=== PATIENT | male | born 1990 | race Caucasian/White ===

== ENCOUNTER 2021-06-27 15:27 | Observation (INO) | payer OTHER, SELFPAY ==
[2021-06-27] VITALS (9 sets, daily range): BP systolic 84–128; BP diastolic 38–71; PULSE 74–103; RESP 16–18; TEMP 36.8–38.7; O2SAT 95–100; BMI 23.2
[2021-06-27 16:01] LABS: Bilirubin Negative (Negative); Blood Negative (Negative); Clarity Clear (Clear); Glucose Negative (Negative); Ketones Negative (Negative); Leukocyte Esterase Negative (Negative); Nitrite Negative (Negative); Specific Gravity >= 1.030 (1.005-1.025); Urobilinogen 0.2 EU/dL (Up TO 0.2)
[2021-06-27] MEDS: Normal Saline 1,000 ML 1000 ML IV (16:07)
[2021-06-27 16:31] LABS: Abs Immature Grans 0.12 10^3/uL (0.0-0.06); Absolute Monocyte Count 1.24 10^3/uL (0.1-0.8); Basophils % 0.2; HGB 14.6 g/dL (13.5-17.5); Immature Grans % 0.6; Lymphocytes % 2.1; MCH 29.3 pg (27.0-33.0); MCHC 35.6 % (32.0-36.0); MCV 82.2 fL (80-95); MPV 9.5 fL (8.0-11.0); Monocytes % 5.9; Neutrophils % 91.2; Nucleated RBC 0 %; Platelet Count 213 10^3/uL (130-400); RBC 4.99 10^6/uL (4.36-5.78); RDW 12.3 % (11.8-14.1); RDW-SD 36.2 fL; WBC 21.03 10^3/uL (4.4-10.8)
[2021-06-27 16:32] LABS: Absolute Basophil Count 0.04 10^3/uL (0.0-0.2); Absolute Lymphocyte Count 0.44 10^3/uL (1.2-3.4); Absolute Neutrophil Count 19.18 10^3/uL (1.2-6.7)
[2021-06-27 16:37] LABS: ALT 26 U/L (16-63); AST 16 U/L (15-37); Albumin 4.3 g/dL (3.4-5.0); Alkaline Phosphatase 90 U/L (46-116); Anion Gap 10.4 mmol/L (3-11); BUN 12 mg/dL (7-18); Bilirubin, Total 1.3 mg/dL (0.2-1.0); CO2 26.6 mmol/L (21.0-32.0); CREATININE 1.1 mg/dL (0.70-1.30); Calcium 8.9 mg/dL (8.5-10.1); Chloride 99 mmol/L (98-107); Glucose 131 mg/dL (74-106); Potassium 3.3 mmol/L (3.5-5.1); Sodium 136 mmol/L (136-145); Total Protein 7.8 g/dL (6.4-8.2)
--- NOTE | 2021-06-27 16:45 | DI.CT_ITS ---
Exam(s) CT ABDOMEN PELVIS W EXAM: CT ABDOMEN PELVIS W CLINICAL HISTORY: Abdominal pain, Right groin pain. TECHNIQUE: Imaging Protocol: Axial computed tomography images with coronal and sagittal reformatted images were created and reviewed CONTRAST MATERIAL: Intravenous: Omnipaque 350 Contrast volume:100 ml Oral: no COMPARISON: No exams were available for comparison FINDINGS: ABDOMEN: Lung Bases: Normal where visualized. Liver: Normal density. No measurable mass. Gallbladder and biliary tract: No radiodense calculus or dilation. Pancreas: Normal density, no abnormal calcifications or inflammatory process. Spleen: Normal. Kidneys: Normal size, contour and axis. No radiodense stones or obstructive uropathy. No masses seen. Adrenal glands: No masses seen. Abdominal Aorta: Abdominal portion non-dilated. PELVIS: Bladder: No gross wall thickening. No calculi.No focal mass. Bowel: No obstruction or bowel wall thickening. Appendix is dilated and fluid-filled and shows mild s urrounding stranding in the fat. Appendicolith is seen proximally.. Peritoneal cavity: Trace free fluid. Bones: Within normal limits for age. Reproductive organs: Within normal limits. Lymph nodes: Unremarkable. Impression: Acute uncomplicated appendicitis. RADIATION DOSE DELIVERED: 627.82mGy.cm Total DLP DATA REPOSITORY: All CT scans at this facility are submitted to the National Radiology Data Registry (NRDR) Dose Index Registry (DIR) with the [employer] (A[employer]). RADIATION OPTIMIZATION: All CT scans at this facility use at least one of these dose optimization te chniques: automated exposure control; mA and/or kV adjustment per patient size (includes targeted exa ms where dose is matched to clinical indication); or iterative reconstruction.
--- NOTE | 2021-06-27 16:49 | ED.GENADUL_ITS ---
Discharge Plan Disposition Patient Disposition: [facility] INPATIENT Condition: Stable Discharge Details Clinical Impression: Acute appendicitis Admit Date/Time: 06/27/21 20:22 Admit Provider: Rhonda Palacios Attending Provider: Rhonda Palacios Primary Care Provider: Unknown,Unknown ED Provider: Cristina Haynes Medical Decision Making CBC shows elevated white blood cell count 21.03, positive left shift absolute neutrophils 19.18, potassium slightly low at 3.3, glucose 131, total bilirubin 1.3 significantly vomited urinalysis shows no evidence of urinary tract infection. CT abdomen pelvis with contrast ordered to rule out appendicitis versus cholecy stitis. Lipase added on the labs. Patient is receiving 1 L normal saline wide open, 1 g Tylenol ordered IV and Covid swab. 1742: Call received from [facility] regarding CT. Positive appendicitis CT abdomen pelvis. Appendix is thickened and dilated. Fluid-filled measuring 13 mm in diameter there appears to be a proximal obstructing appendicolith series #7 images 601 12 there is mild adjacent inflammatory changes. Small bilateral hydroceles. Exam: CT Abdomen And Pelvis With Contrast Exam date and time: 06/27/2021 4:49 PM Age: 31 years old COMPARISON: No relevant prior studies available. FINDINGS: Liver: Normal. No mass. Gallbladder and bile ducts: Normal. No calcified stones. No ductal dilation. Pancreas: Normal. No ductal dilation. Spleen: Normal. No splenomegaly. Adrenal glands: Normal. No mass. Kidneys and ureters: Normal. No hydronephrosis. Stomach and bowel: Moderate fecal retention pattern. No abnormal bowel distention or wall edema is appreciated. New lines the appendix is abnormally thickened and dilated. It is fluid-filled measuring nearly 13 mm in diameter. There appears to be a proximal obstructing appendicoliths series 7, images 601-612. There is mild adjacent inflammatory change. Appendix: See Stomach and bowel finding.Please thank youl aortic aneurysm. Lymph nodes: Unremarkable. No enlarged lymph nodes. Urinary bladder: Unremarkable as visualized. Reproductive: Small bilateral hydroceles. Bones/joints: Unremarkable. No acute fracture. Soft tissues: Unremarkable. IMPRESSION: Acute appendicitis. No evidence for rupture. Suspect proximal obstructing appendicoliths. Thank you for allowing us to participate in the care of your patient. Dictated and Authenticated by: Ofelia Ervin MD 077: Call made to [facility] due to [facility] at bed capacity, surgeon paged. Discussed plan of care and CT results with patient who verbalizes understanding and is in agreement with plan. 180: RN informed me temp 101.6, Received 1gm Tylenol IVPB, Pain 4/10. 180: Spoke with Dr. Solorzano with Surgery at [facility], she recommends consult with our in house surgery team she states, sometimes the treatment is IV antibiotics, our surgeon paged. Will expect to call [facility] surgery back. 1814: Spoke with Dr. Palacios with [facility], regarding patient case and details, she will call me back. 1827: Spoke again with Dr. Palacios who agrees to admit patient, she was able to find a bed available at this facility, agrees to come in to evaluate patient. Dr. Palacios here at for patient evaluation, plan to take patient to OR for appendectomy. HPI General Mode of arrival: ambulatory . Date/Time Provider Initiated Documentation: 06/27/21 16:48 . Limitations to Documentation: no limitations . Information obtained by: patient, RN notes reviewed and old records reviewed . HPI Narrative: 31-year-old male presents the ER chief complaint of abdominal pain which began approximately 3:00 in the morning. He reports it began around periumbilical and now has radiated down into his right lower quadrant right groin. He did have one episode of emesis earlier denies diarrhea. Denies any fever. Does endorse chills. He has no known drug allergies no meds no history. He denies any dysuria. On initial exam he is tender in the right lower quadrant. Did not take any medications prior to arrival. Related Data Home Medications Medication Instructions Recorded Confirmed Unknown [No Known Home Meds] 06/27/21 06/27/21 Allergies Allergy/AdvReac Type Severity Reaction Status Date / Time No Known Allergies Allergy Unverified 06/27/21 15:42 General Stated Complaint: Abd Prob DARY: 3 Review of Systems All systems reviewed & are unremarkable except as noted in HPI and below Constitutional Constitutional: Reports poor appetite Gastrointestinal Gastrointestinal: Reports abdominal pain, Denies diarrhea, Reports nausea, Reports vomiting and Denies hematemesis [facility] Social History Smoking/Tobacco Use Status: Never Smoking risk assessment performed?: Yes Alcohol Intake: current Alcohol Intake frequency: 0-2 drinks per day Alcohol type: beer, wine and hard liquor Drug use: Occasionally Substance use type: marijuana Do you feel safe at home: Yes Do you feel safe in your relationship?: Yes Exam Narrative Exam Narrative: Constitutional: Alert and oriented x3. Appears stated age. Normal body habitus. Head: Normocephalic, no trauma. Eyes: Pupils PERRL, Red reflex noted, EOM's intact. Eyelids symmetrical without lesions, discharge, or swelling. ENT: Bilateral TM's WNL, External ear normal to inspection, no mastoid TTP, swelling, or erythema, Nasal turbinates WNL, no nasal discharge. Normal dentition, Posterior pharynx WNL, no exudate. Chest: RRR, Normal S1, S2, distal pulses intact. Resp: Lungs clear to auscultation bilaterally, no wheezes, rales, or rhonchi. Abdomen: Soft, non-distended, hypoactive bowel sounds all 4 quads. Right lower quadrant tenderness with palpation. : No testicular swelling, redness or tenderness with palpation. Cresematic reflex intact. Musculoskeletal: Normal gait, 5/5 strength to all four extremities. Skin: No suspicious rashes or lesions. Capillary refill less than 2 sec. Neurologic: Cranial nerves II-XII intact. Alert and oriented x 3. Motor: No deficits noted. Sensory: Intact bilaterally all 4 extremities. Reflexes: DTR's intact bilaterally.. Hematologic/Lymphatic: No ecchymosis, no lymphadenopathy. Course Vital Signs Vital signs: Vital Signs Temperature 37.3 C 06/27/21 15:43 Pulse 103 H 06/27/21 15:43 Respiratory Rate 18 06/27/21 15:43 Blood Pressure 128/71 06/27/21 15:43 Pulse Oximetry 100 06/27/21 15:43 Temperature 37.3 C 06/27/21 15:43 Temperature Source Temporal Artery Scan 06/27/21 15:43 Pulse 103 H 06/27/21 15:43 Respiratory Rate 18 06/27/21 15:43 Respiratory Effort Non-Labored 06/27/21 15:47 Blood Pressure 128/71 06/27/21 15:43 Blood Pressure Position Sitting 06/27/21 15:43 Pulse Oximetry 100 06/27/21 15:43 Oxygen Delivery Method Room Air 06/27/21 15:43 Oxygen Flow Rate 0 06/27/21 15:43 Pain Level 5 06/27/21 15:43 Lab/Test Results Lab/Test Results: Laboratory Tests Range/Units 06/27/21 06/27/21 06/27/21 15:52 16:07 16:07 WBC (4.4-10.8) 10^3/uL 21.03 H RBC (4.36-5.78) 10^6/uL 4.99 Hgb (13.5-17.5) g/dL 14.6 Hct (40.0-50.0) % 41.0 MCV (80-95) fL 82.2 MCH (27.0-33.0) pg 29.3 MCHC (32.0-36.0) % 35.6 RDW (11.8-14.1) % 12.3 Plt Count (130-400) 10^3/uL 213 MPV (8.0-11.0) fL 9.5 Immature Gran % 0.6 Neutrophils % 91.2 Lymphocytes % 2.1 Monocytes % 5.9 Eosinophils % 0.0 Basophils % 0.2 Nucleated RBC % % 0 Absolute Neutrophils (1.2-6.7) 10^3/uL 19.18 H Absolute Lymphocytes (1.2-3.4) 10^3/uL 0.44 L Absolute Monocytes (0.1-0.8) 10^3/uL 1.24 H Absolute Eosinophils (0.0-0.7) 10^3/uL 0.00 Absolute Basophils (0.0-0.2) 10^3/uL 0.04 Sodium (136-145) mmol/L 136 Potassium (3.5-5.1) mmol/L 3.3 L Chloride (98-107) mmol/L 99 Carbon Dioxide (21.0-32.0) mmol/L 26.6 Anion Gap (3-11) mmol/L 10.4 BUN (7-18) mg/dL 12 Creatinine (0.70-1.30) mg/dL 1.1 Estimated GFR/1.73 m2 (mL/min/1.73m2) >= 60.00 Glucose (74-106) mg/dL 131 H Calcium (8.5-10.1) mg/dL 8.9 Total Bilirubin (0.2-1.0) mg/dL 1.3 H AST (15-37) U/L 16 ALT (16-63) U/L 26 Alkaline Phosphatase (46-116) U/L 90 Total Protein (6.4-8.2) g/dL 7.8 Albumin (3.4-5.0) g/dL 4.3 Urine Color (Yellow) Yellow Urine Clarity (Clear) Clear Urine pH (5-8) 6.0 Ur Specific [place] (1.005-1.025) >= 1.030 H Urine Protein (Negative) mg/dL Negative Urine Ketones (Negative) mg/dL Negative Urine Blood (Negative) Negative Urine Nitrite (Negative) Negative Urine Bilirubin (Negative) Negative Urine Urobilinogen (Up TO 0.2) EU/dL 0.2 Ur Leukocyte Esterase (Negative) Negative Urine Glucose (Negative) mg/dL Negative PAWSS Have you Been Recently Intoxicated or Drunk Within the Last 30 days?: No Have you Ever Experienced Previous Episodes of Alcohol Withdrawal?: No Have you ever Experienced Withdrawal Seizures?: No Have you ever Experienced Delirium Tremens(DT)s?: No Have you ever undergone Alcohol Rehabilitation Treatment (i.e, inpt ot outpatient treatment programs)?: No Have you ever Experienced Blackouts?: No Have you ever Combined Alcohol with other Downers within the last 90 days?: No Have you ever Combined Alcohol with any other Substance of Abuse during the last 90 days?: No Positive Blood Alcohol level on Presentation? [PCS.BAL]: No Evidence of Increased Autonomic Activity (i.e. HR>120, tremor, sweating, agitation, nausea)?: No Result: 0
[2021-06-27 17:10] LABS: Source Nasal/Nares
[2021-06-27 17:13] LABS: Lipase 79 U/L (73-393)
[2021-06-27] MEDS: Normal Saline - Diluent 50 ML VIAL IV (17:19)
[2021-06-27] MEDS: Omnipaque 350 MG/ML 100 ML BTL IJ (17:22)
[2021-06-27] MEDS: ACETAMINOPHEN 1,000 MG/100 ML BTL 400 MG IVPB ×2 (17:32→23:15)
--- NOTE | 2021-06-27 17:43 | DI.VRAD_ITS ---
Addendum created by Ofelia Ervin MD on 06/27/2021 5:43:56 PM EDT: I discussed case findings with TIFFANIE BISHOP 06/27/2021 5:43 PM EDT. Initial report created on 06/27/2021 5:43:29 PM EDT: PROCEDURE INFORMATION: Exam: CT Abdomen And Pelvis With Contrast Exam date and time: 06/27/2021 4:49 PM Age: 31 years old Clinical indication: Other: Abdominal pain, right groin pain TECHNIQUE: Imaging protocol: Computed tomography of the abdomen and pelvis with contrast. Contrast material: OMNIPAQUE 350; Contrast volume: 100 ml; Contrast route: INTRAVENOUS (IV); COMPARISON: No relevant prior studies available. FINDINGS: Liver: Normal. No mass. Gallbladder and bile ducts: Normal. No calcified stones. No ductal dilation. Pancreas: Normal. No ductal dilation. Spleen: Normal. No splenomegaly. Adrenal glands: Normal. No mass. Kidneys and ureters: Normal. No hydronephrosis. Stomach and bowel: Moderate fecal retention pattern. No abnormal bowel distention or wall edema is appreciated. New lines the appendix is abnormally thickened and dilated. It is fluid-filled measuring nearly 13 mm in diameter. There appears to be a proximal obstructing appendicoliths series 7, images 601-612. There is mild adjacent inflammatory change. Appendix: See Stomach and bowel finding. Intraperitoneal space: Trace free fluid. Vasculature: Unremarkable. No abdominal aortic aneurysm. Lymph nodes: Unremarkable. No enlarged lymph nodes. Urinary bladder: Unremarkable as visualized. Reproductive: Small bilateral hydroceles. Bones/joints: Unremarkable. No acute fracture. Soft tissues: Unremarkable. IMPRESSION: Acute appendicitis. No evidence for rupture. Suspect proximal obstructing appendicoliths. Dictated and Authenticated by: Ofelia Ervin MD. Ordering:AB Evans MD
[2021-06-27] MEDS: Normal Saline 1,000 ML 150 ML IV (18:05)
[2021-06-27 18:06] LABS: COVID-19 PCR Negative (Negative)
[2021-06-27] MEDS: PIPERACILLIN/TAZO 3.375 GM in Normal Saline 50 ML IVPB (18:35)
--- NOTE | 2021-06-27 18:36 | W.ANESPRE ---
General Info Date of Service Date Performed: 06/27/21 Height: 5 ft 6 in Weight: 65.317 kg Body Mass Index (BMI): 23.2 Meds Allergies and Home Medications Allergies Allergy/AdvReac Type Severity Reaction Status Date / Time No Known Allergies Allergy Unverified 06/27/21 15:42 Home Medication Medication Instructions Recorded Unknown [No Known Home Meds] 06/27/21 Current Visit Medications: Current Medications Generic Name Dose Route Start Last Admin Trade Name Freq PRN Reason Stop Dose Admin Sodium Chloride 500 mls @ 0 mls/hr 06/27/21 16:01 Saline 500ml Bag IV PRN PRN As Directed Sodium Chloride 1,000 mls @ 150 mls/hr 06/27/21 18:01 06/27/21 18:05 Saline 1000ml Bag IV 06/28/21 00:40 150 mls/hr INFUSION STA Administration Piperacillin Sod/Tazobactam 50 mls @ 100 mls/hr 06/27/21 18:21 Sod 3.375 gm/ Sodium Chloride IVPB 06/27/21 18:50 NOW ONE Protocol IV Miscellaneous Supplies 1 each 06/27/21 16:15 Iv Access IV DIRECTED DANGELO Iohexol 100 ml 06/27/21 17:30 06/27/21 17:22 Omnipaque 350 Mg/Ml 100 Ml Btl IJ 07/27/21 23:59 100 ml DIRECTED DANGELO Administration Sodium Chloride 0 ml 06/27/21 16:01 Normal Saline Flush 10 Ml Syr IVP PRN PRN Sodium Chloride 50 ml 06/27/21 17:30 06/27/21 17:19 Normal Saline - Diluent 50 Ml Vial IV 50 ml .FOR DI USE DANGELO Administration [facility] Tobacco Smoking/Tobacco Use Status: Never Alcohol Alcohol Intake: current Alcohol intake frequency: 0-2 drinks per day Alcohol type: beer, wine and hard liquor Substance Use Substance use: Occasionally Substance use type: marijuana Vital Signs and Lab Results Vital Signs Most Recent Vital Signs in EMR: Most Recent Vital Signs Temp Pulse Resp BP Pulse Ox 38.7 C H 98 H 16 119/62 95 06/27/21 17:56 06/27/21 17:56 06/27/21 17:56 06/27/21 17:56 06/27/21 17:56 Lab Results Result Diagrams: 06/27/21 16:07 06/27/21 16:07 Blood Type / Crossmatch: No Data to Display Complete Blood Count: White Blood Count 21.03 10^3/uL (4.4-10.8) H 06/27/21 16:07 06/27/21 Red Blood Count 4.99 10^6/uL (4.36-5.78) 06/27/21 16:07 06/27/21 Hemoglobin 14.6 g/dL (13.5-17.5) 06/27/21 16:07 06/27/21 Hematocrit 41.0 % (40.0-50.0) 06/27/21 16:07 06/27/21 Platelet Count 213 10^3/uL (130-400) 06/27/21 16:07 06/27/21 Complete Metabolic Panel: Sodium Level 136 mmol/L (136-145) 06/27/21 16:07 06/27/21 Potassium Level 3.3 mmol/L (3.5-5.1) L 06/27/21 16:07 06/27/21 Chloride Level 99 mmol/L (98-107) 06/27/21 16:07 06/27/21 Carbon Dioxide Level 26.6 mmol/L (21.0-32.0) 06/27/21 16:07 06/27/21 Blood Urea Nitrogen 12 mg/dL (7-18) 06/27/21 16:07 06/27/21 Creatinine 1.1 mg/dL (0.70-1.30) 06/27/21 16:07 06/27/21 Estimated GFR/1.73 m2 >= 60.00 (mL/min/1.73m2) 06/27/21 16:07 06/27/21 Calcium Level 8.9 mg/dL (8.5-10.1) 06/27/21 16:07 06/27/21 Albumin 4.3 g/dL (3.4-5.0) 06/27/21 16:07 06/27/21 Glucose Level 131 mg/dL (74-106) H 06/27/21 16:07 06/27/21 Liver Function Panel: Alanine Aminotransferase (ALT/SGPT) 26 U/L (16-63) 06/27/21 16:07 06/27/21 Aspartate Amino Transf (AST/SGOT) 16 U/L (15-37) 06/27/21 16:07 06/27/21 Coagulation Panel: No Data to Display Cardiac Panel: No Data to Display Arterial Blood Gas: No Data to Display Venous Blood Gas: No Data to Display Pancreas Panel: Lipase 79 U/L (73-393) 06/27/21 16:07 06/27/21 Thyroid Panel: No Data to Display Infectious Disease: Coronavirus (COVID-19)(PCR) Negative (Negative) 06/27/21 17:10 06/27/21 Coronavirus 2019 Source Nasal/Nares 06/27/21 17:10 06/27/21 Blood Cultures: No Data to Display Toxicology Panel: No Data to Display Anesthesia Assessment and Plan Anesthesia History Personal History: No History of Anesthesia Complications Family History: No Family History of Anesthesia Complications Exercise Tolerance Exercise Tolerance: Metabolic Equivalents>4 Cardiac & Pulmonary Exam Cardiac Exam: Normal S1/S2 Heart Sounds Pulmonary Exam: Clear Bilateral Breath Sounds Airway Exam Known Difficult Airway: No Mallampati Class: 1 Mouth Opening: Normal (> 3cm) Thyromental Distance: Greater than 3 cm Neck Range of Motion: Full ROM Neck Circumference: Normal Teeth Condition: Normal Dentition ASA Classification ASA Score: ASA 2 Emergency Case?: Yes NPO Status NPO Status: NPO Clears >2 hours, Solids >8 hours Anesthesia Plan Resuscitation Status: Full Code Anesthesia Technique: General Anesthesia Airway Planned: Endotracheal Tube Monitors Used: Standard Monitors Preoperative Comments:: 31 yo male for lap appy. Denies any major health history. NPO for solids 24 hrs, liquids for 3 hrs.
--- NOTE | 2021-06-27 19:23 | HPE_ITS ---
Date of service: 06/27/21 Time of Service: 19:23 Assessment and Plan Assessment and plan (1) Acute appendicitis: Status: Acute Assessment and plan: Informed consent is obtained for the procedural (explained in simple layman's terms that the pt and/or family could understand) explaining risks vs benefits and alternatives to the procedure and consequences if we do not do the procedure. Risks include but are not limited to:bleeding,infections, pneumonia, blood clots/DVT/PE, anesthesia(aspiration, damage to teeth/airway/LA/CVA//prolonged mechanical ventilation/PTX/IV infections), damage to bowel, bladder,blood vessels. Leakage from anastomosis requiring colostomy/ Wound infections requiring further surgery. Scarring and disfigurement. Subsequent bowel obstructions from scar tissue. Possible open procedure if minimally invasive procedure is being attempted. abscess or hernia. Patient will be kept overnight for IV antibiotic because of his elevated white count Supportive care Most likely discharged home in a.m. History of Present Illness Consults Consult date: 06/27/21 Narrative: pt woke up w/ pain at 3am. Never experienced anything like this before. Denies any trauma/travel. He has been having fever/chills. no diarrhea. no dysuria. pain has moved to the RLQ. radiates into back and testicle. localized pain and rebound/guarding in RLQ. no PMHx PSHx- wisdom teeth. NKDA no meds not smoker no street drugs Review of Systems All systems reviewed & are unremarkable except as noted in HPI and below PFSH Social History Smoking/Tobacco Use Status: Never Smoking risk assessment performed?: Yes Alcohol Intake: current Alcohol Intake frequency: 0-2 drinks per day Alcohol type: beer, wine and hard liquor Drug use: Occasionally Substance use type: marijuana Do you feel safe at home: Yes Do you feel safe in your relationship?: Yes Meds Allergies and Home Medications Allergies Allergy/AdvReac Type Severity Reaction Status Date / Time No Known Allergies Allergy Unverified 06/27/21 15:42 Home Medications Medication Instructions Recorded Confirmed Type Unknown [No Known Home Meds] 06/27/21 06/27/21 History Exam Const General: cooperative, healthy appearing, comfortable, no acute distress, well developed and well groomed Nutritional Appearance: average body habitus and well nourished Orientation: alert, awake and oriented x3 [facility] Head: normal to inspection, normocephalic and atraumatic Ears: hearing grossly normal bilaterally and external ears normal General nose exam: external nose normal Face and sinus: normal facial exam and sinuses nontender Mouth: oral mucosae normal, lip normal, tongue normal and moist mucous membranes Teeth and gingiva: dentition normal Eyes General: appearance normal, both eyes and all related structures Conjunctivae: conjunctivae normal Sclera: sclerae normal Pupils: PERRL Neck Neck: normal visual inspection and full ROM Chest Chest: normal inspection of the chest Resp Effort & Inspection: normal respiratory effort, able to speak in complete se ntences, no cough, no nasal flaring, not tachypneic and no use of accessory muscles Auscultation: clear to auscultation bilaterally, no rales, no rhonchi and no wheezes Cardio Jugular venous pressure: no JVD Rate: regular rate Rhythm: regular rhythm GI Inspection: normal to inspection, no edema and non-distended Palpation: soft, no masses, tender in the RLQ, with rebound tenderness and Rovsing's sign positive and No ascites Auscultation: hypoactive bowel sounds Other: no hernias Skin General skin exam: no rashes or lesions noted Trauma: no lacerations or abrasions Neuro General: patient alert, patient oriented x3, oriented, gait normal, moves all extremities, no focal motor deficits and CN's II-XI intact bilaterally Cognition: normal cognition Speech: speech normal Gait: normal gait Motor: muscle tone normal throughout Extrem General: normal to inspection, full ROM and no clubbing, cyanosis or edema Psych Appearance: grossly normal and well kempt Mental Status: mental status grossly normal Speech and Movement: speech and movement normal Affect: normal affect Results Labs Result diagrams: 06/27/21 16:07 06/27/21 16:07 Labs: Laboratory Results - last 24 hr 06/27/21 06/27/21 06/27/21 15:52 16:07 16:07 WBC 21.03 H RBC 4.99 Hgb 14.6 Hct 41.0 MCV 82.2 MCH 29.3 MCHC 35.6 RDW 12.3 Plt Count 213 MPV 9.5 Immature Gran % 0.6 Neutrophils % 91.2 Lymphocytes % 2.1 Monocytes % 5.9 Eosinophils % 0.0 Basophils % 0.2 Nucleated RBC % 0 Absolute Neutrophils 19.18 H Absolute Lymphocytes 0.44 L Absolute Monocytes 1.24 H Absolute Eosinophils 0.00 Absolute Basophils 0.04 Sodium 136 Potassium 3.3 L Chloride 99 Carbon Dioxide 26.6 Anion Gap 10.4 BUN 12 Creatinine 1.1 Estimated GFR/1.73 m2 >= 60.00 Glucose 131 H Calcium 8.9 Total Bilirubin 1.3 H AST 16 ALT 26 Alkaline Phosphatase 90 Total Protein 7.8 Albumin 4.3 Lipase Urine Color Yellow Urine Clarity Clear Urine pH 6.0 Ur Specific [place] >= 1.030 H Urine Protein Negative Urine Ketones Negative Urine Blood Negative Urine Nitrite Negative Urine Bilirubin Negative Urine Urobilinogen 0.2 Ur Leukocyte Esterase Negative Urine Glucose Negative COVID-19 Source SARS-CoV-2 (PCR) 06/27/21 06/27/21 16:07 17:10 WBC RBC Hgb Hct MCV MCH MCHC RDW Plt Count MPV Immature Gran % Neutrophils % Lymphocytes % Monocytes % Eosinophils % Basophils % Nucleated RBC % Absolute Neutrophils Absolute Lymphocytes Absolute Monocytes Absolute Eosinophils Absolute Basophils Sodium Potassium Chloride Carbon Dioxide Anion Gap BUN Creatinine Estimated GFR/1.73 m2 Glucose Calcium Total Bilirubin AST ALT Alkaline Phosphatase Total Protein Albumin Lipase 79 Urine Color Urine Clarity Urine pH Ur Specific [place] Urine Protein Urine Ketones Urine Blood Urine Nitrite Urine Bilirubin Urine Urobilinogen Ur Leukocyte Esterase Urine Glucose COVID-19 Source Nasal/Nares SARS-CoV-2 (PCR) Negative Last Vital Signs Temp 38.7 C H 06/27/21 17:56 Pulse 98 H 06/27/21 17:56 Resp 16 06/27/21 17:56 BP 119/62 06/27/21 17:56 Pulse Ox 95 06/27/21 17:56 PAWSS Have you Been Recently Intoxicated or Drunk Within the Last 30 days?: No Have you Ever Experienced Previous Episodes of Alcohol Withdrawal?: No Have you ever Experienced Withdrawal Seizures?: No Have you ever Experienced Delirium Tremens(DT)s?: No Have you ever undergone Alcohol Rehabilitation Treatment (i.e, inpt ot outpatient treatment programs)?: No Have you ever Experienced Blackouts?: No Have you ever Combined Alcohol with other Downers within the last 90 days?: No Have you ever Combined Alcohol with any other Substance of Abuse during the last 90 days?: No Positive Blood Alcohol level on Presentation? [PCS.BAL]: No Evidence of Increased Autonomic Activity (i.e. HR>120, tremor, sweating, agitation, nausea)?: No Result: 0
--- NOTE | 2021-06-27 19:30 | W.PM.OP ---
Date of service: 06/27/21 Operative Note Operative Note DATE OF PROCEDURE: 06/27/21 PRE-OP DIAGNOSIS: acute appendicitis POST-OP DIAGNOSIS: same PROCEDURE: lap appy SURGEON: Mikhail Baker MORNING NEWS ANCHOR: Kayla Fisher ANESTHESIA TYPE: Local By Surgeon and General LMA/ETT Refer to Anesthesia Record ESTIMATED BLOOD LOSS: 5 PATHOLOGY: other COMPLICATIONS: None Patient was transported to: PACU Patient's condition: stable Procedure Description: PRE OP DIAGNOSIS: Acute Appendicitis POST OP DIAGNOSIS: same PROCEDURE: Laparoscopic appendectomy. SURGEON: Mikhail Baker, DO ANESTHESIA: General. ESTIMATED BLOOD LOSS: 5 mL. COMPLICATIONS: The patient tolerated the procedure well without complications. INDICATIONS: The patient has signs and symptoms compatible with acute appendicitis and is brought to the OR for laparoscopic appendectomy, possible open procedure. Informed consent is obtained for the procedural (explained in simple layman's terms that the pt and/or family could understand) explaining risks vs benefits and alternatives to the procedure and consequences if we do not do the procedure. Risks include but are not limited to:bleeding,infections, pneumonia, blood clots/DVT/PE, anesthesia(aspiration, damage to teeth/airway/IA/CVA//prolonged mechanical ventilation/PTX/IV infections), damage to bowel, bladder,blood vessels, ureters. Damage to solid organs requiring removal. Infertility. Leakage from anastomosis requiring colostomy. Wound infections requirng further surgery. Scarring and disfigurement. Subsequent bowel obstructions from scar tissue. Possible open procedure if minimaly invsive procedure is being attempted. Abscess and stump appendicitis as well as others. DESCRIPTION OF PROCEDURE: The patient was brought to the operating room suite and placed in supine position. Anesthesia was administered per the Department of Anesthesia. A Acevedo catheter and OG tube are placed. The patient was prepped and draped in the usual sterile fashion using ChloraPrep scrub solution. Pause for the cause was done. 30 mL of 1% buffered was used for local anesthetization. A stab incision was made in the umbilicus and the Veress was inserted. Drop test was positive and insufflation was begun. When 15 mm of pressure was noted on the monitor, the Veress was removed, a #5 port inserted. Camera inserted through the port shows no damage to underlying structures. Bowel, liver and stomach that are visualized are normal in appearance. Pelvic organs are not visualized. The appendix is inflamed, erythematous,enlarged, & distened, but does not appear to have been ruptured. There is no purulent drainage in the pelvis. It is not adhered to any adjacent structures. A 12 mm port was then placed in the suprapubic position under direct visualization following creation of a local field block as well as a second 5 mm port in the LLQ. The appendix is elevated and a rent dissected into the mesentery. The base of the appendix is healthy and will hold caroalnn. A Endo-JHONATHAN stapler is placed across the base of the appendix and fired and 2nd stapler placed across the mesentery and fired. The appendix is placed in a bag and brought out. There is no bleeding or enteric leakage from the staple lines. The pt does not require a drain. The abdomen was copiously irrigated with a liter of saline. All saline is evacuated. The scope and ports are removed. Pneumoperitoneum is evacuated. The fascia under the 12 mm port is closed with 0 Vicryl. There was no bleeding from the port sites as when they removed and the pneumoperitoneum evacuated. The wounds were copiously irrigated and closed in 2 layers with 4-0 Monocryl. Skin glue is used. Sterile dressings are applied. The patient tolerated the procedure without complication, transferred to the recovery room in stable condition. Pt will be admitted for IV abx for the MIKHAIL BAKER DO
--- NOTE | 2021-06-27 20:10 | APP_PTH ---
PATIENT: Heath Vergara LOC: U#:[id number] AGE/SX: 31/M ROOM: [id number] RE06/27/[address]: Rhonda Palacios : 1990 BED: A DIS: 06/28/2021 SPEC #: [id number] RECD: 06/28/21 12:37 STATUS: SOUT REQ #: [id number] RAND: 06/27/21 20:[address]: Rhonda Palacios DEPT: Surgical Specimen RECD BY: Naomie Azar ENTERED: 06/28/21 12:38 SP TYPE: Appendix OTHR DR: Unknown,Unknown Tissues: 1 - APPENDIX NOT INCIDENTAL Procedures: GROSS AND MICRO LEVEL 3 Comments: [id number]
[2021-06-27] MEDS: Bupivacaine 0.25% Pres-Free 30 ML VIAL (20:17)
--- NOTE | 2021-06-27 20:21 | PGE_ITS ---
Date of Service Date of service: 06/27/21 Time of Service: 21:15 Assessment and Plan Assessment and plan (1) Acute appendicitis: Status: Acute Assessment and plan: The patient is doing well post-op. Their pain is well controlled. They are having no nausea or vomiting. The pt is not having any chest pain or SOB, productive cough; no calf pain or swelling. The pt is making good urine. The pt pain is adequately controlled. The case was discussed with nursing and patient?s progress reviewed. All of the pt's home medications were addressed and adjusted accordingly for their oral intact status. HEENT: no jaundice. no eye pain/drainage/redness/swelling. Mild sore throat Cardio- NSR no chest pain, BP stable. Pulm: no sob or productive cough. no hemoptysis Incision- clean/dry. Dressing intact no excessive bleeding or drainage I discussed with the patient and/or there family about the findings in surgery and the pt's progress. We reviewed expectations for progress in the hospital; what the pt could expect for recovery time and length of stay. We discussed the importance of walking and pulmonary toilet to avoid blood clots and pneumonia. Continue current plans for pulmonary toilet, GI and DVT prophylaxis. We shall continue the current plan for pain management as it is at an appropriate level, and working well for the pt. Appropriate measures will be taken for constipation prevention, and this was also reviewed with the pt. The wound care plan was reviewed with nursing as well. see orders Objective Last Vital Signs Temp 38.7 C H 06/27/21 17:56 Pulse 98 H 06/27/21 17:56 Resp 16 06/27/21 17:56 BP 119/62 06/27/21 17:56 Pulse Ox 95 06/27/21 17:56 Laboratory Results - last 24 hr 06/27/21 06/27/21 06/27/21 15:52 16:07 16:07 WBC 21.03 H RBC 4.99 Hgb 14.6 Hct 41.0 MCV 82.2 MCH 29.3 MCHC 35.6 RDW 12.3 Plt Count 213 MPV 9.5 Immature Gran % 0.6 Neutrophils % 91.2 Lymphocytes % 2.1 Monocytes % 5.9 Eosinophils % 0.0 Basophils % 0.2 Nucleated RBC % 0 Absolute Neutrophils 19.18 H Absolute Lymphocytes 0.44 L Absolute Monocytes 1.24 H Absolute Eosinophils 0.00 Absolute Basophils 0.04 Sodium 136 Potassium 3.3 L Chloride 99 Carbon Dioxide 26.6 Anion Gap 10.4 BUN 12 Creatinine 1.1 Estimated GFR/1.73 m2 >= 60.00 Glucose 131 H Calcium 8.9 Total Bilirubin 1.3 H AST 16 ALT 26 Alkaline Phosphatase 90 Total Protein 7.8 Albumin 4.3 Lipase Urine Color Yellow Urine Clarity Clear Urine pH 6.0 Ur Specific [place] >= 1.030 H Urine Protein Negative Urine Ketones Negative Urine Blood Negative Urine Nitrite Negative Urine Bilirubin Negative Urine Urobilinogen 0.2 Ur Leukocyte Esterase Negative Urine Glucose Negative COVID-19 Source SARS-CoV-2 (PCR) 06/27/21 06/27/21 16:07 17:10 WBC RBC Hgb Hct MCV MCH MCHC RDW Plt Count MPV Immature Gran % Neutrophils % Lymphocytes % Monocytes % Eosinophils % Basophils % Nucleated RBC % Absolute Neutrophils Absolute Lymphocytes Absolute Monocytes Absolute Eosinophils Absolute Basophils Sodium Potassium Chloride Carbon Dioxide Anion Gap BUN Creatinine Estimated GFR/1.73 m2 Glucose Calcium Total Bilirubin AST ALT Alkaline Phosphatase Total Protein Albumin Lipase 79 Urine Color Urine Clarity Urine pH Ur Specific [place] Urine Protein Urine Ketones Urine Blood Urine Nitrite Urine Bilirubin Urine Urobilinogen Ur Leukocyte Esterase Urine Glucose COVID-19 Source Nasal/Nares SARS-CoV-2 (PCR) Negative PAWSS Have you Been Recently Intoxicated or Drunk Within the Last 30 days?: No Have you Ever Experienced Previous Episodes of Alcohol Withdrawal?: No Have you ever Experienced Withdrawal Seizures?: No Have you ever Experienced Delirium Tremens(DT)s?: No Have you ever undergone Alcohol Rehabilitation Treatment (i.e, inpt ot outpatient treatment programs)?: No Have you ever Experienced Blackouts?: No Have you ever Combined Alcohol with other Downers within the last 90 days?: No Have you ever Combined Alcohol with any other Substance of Abuse during the last 90 days?: No Positive Blood Alcohol level on Presentation? [PCS.BAL]: No Evidence of Increased Autonomic Activity (i.e. HR>120, tremor, sweating, agitation, nausea)?: No Result: 0
--- NOTE | 2021-06-27 21:09 | W.ANESPOSTOP ---
Postoperative Evaluation Date, Time and Location Date Performed: 06/27/21 Time Performed: 21:09 Patient Location: Med/Surg Vital Signs Most Recent Imported Vital Signs: Most Recent Vital Signs Temp Pulse Resp BP Pulse Ox 37.5 C 74 17 106/58 L 98 06/27/21 21:06 06/27/21 21:06 06/27/21 21:06 06/27/21 21:06 06/27/21 21:06 Pain Score Most Recent Pain Score: Most Recent Pain Score Pain Level 4 06/27/21 17:56 Assessment Mental Status: Awake (Alert & Oriented to Patient Baseline) Airway and Respiratory Function: Patent airway with normal (patient baseline) respiratory exam Cardiovascular Function: Hemodynamically Stable Hydration Status: Adequately Hydrated Nausea & Vomiting: No Nausea or Vomiting Pain: Pain is tolerable per patient Peripheral Nerve Block: Patient did not receive a nerve block
[2021-06-27] MEDS: Enoxaparin 40 MG/0.4 ML SYR SC (23:15)
[2021-06-27] MEDS: DEXTROSE 5%-0.45% SALINE 1,000 ML 125 ML IV (23:15)
[2021-06-27] MEDS: Normal Saline Flush 10 ML SYR IVP (23:16)
[2021-06-28] MEDS: PIPERACILLIN/TAZO 3.375 GM in Normal Saline 50 ML IVPB ×4 (00:01→17:30)
[2021-06-28 00:07] VITALS: BP 112/61; PULSE 67; RESP 16; TEMP 36.5; O2SAT 97
[2021-06-28] MEDS: Ketorolac 15 MG/ML VIAL IVP ×3 (01:13→13:30)
[2021-06-28] MEDS: ACETAMINOPHEN 1,000 MG/100 ML BTL 400 MG IVPB ×2 (05:45→12:59)
[2021-06-28] MEDS: DEXTROSE 5%-0.45% SALINE 1,000 ML 125 ML IV (06:11)
[2021-06-28 06:54] LABS: Abs Immature Grans 0.16 10^3/uL (0.0-0.06); Absolute Neutrophil Count 17.39 10^3/uL (1.2-6.7); Basophils % 0.2; HGB 13.4 g/dL (13.5-17.5); Immature Grans % 0.8; Lymphocytes % 4.2; MCHC 34.4 % (32.0-36.0); MCV 87.2 fL (80-95); MPV 9.5 fL (8.0-11.0); Monocytes % 2.9; Neutrophils % 91.9; Nucleated RBC 0 %; Platelet Count 205 10^3/uL (130-400); RBC 4.47 10^6/uL (4.36-5.78); RDW 12.5 % (11.8-14.1); RDW-SD 39.6 fL; WBC 18.92 10^3/uL (4.4-10.8)
[2021-06-28 07:01] LABS: Absolute Basophil Count 0.04 10^3/uL (0.0-0.2); Absolute Lymphocyte Count 0.79 10^3/uL (1.2-3.4); Absolute Monocyte Count 0.55 10^3/uL (0.1-0.8)
[2021-06-28 07:41] VITALS: BP 112/66; PULSE 71; RESP 18; TEMP 35.8; O2SAT 99
--- NOTE | 2021-06-28 08:27 | PGE_ITS ---
Date of Service Date of service: 06/28/21 Time of Service: 08:27 Assessment and Plan Assessment and plan (1) Acute appendicitis: Status: Acute Assessment and plan: POD # 1 s/p laparoscopic appendectomy. Diet progressed to normal diet Ambulating without any difficulty (+) Flatus and Bowel sounds Pain has been well controlled. Continue Pulmonary Toilet Subjective Subjective Interval history since last seen: Patient reports feeling much better today, I can move around now without any pain. He has been tolerating clear liquids and passing flatus. Denies any fevers, chills or night sweats. Exam Const General: cooperative, healthy appearing and comfortable Orientation: alert and oriented x3 Resp Effort & Inspection: normal respiratory effort, no audible wheezes and no cough GI Inspection: normal to inspection and incision (skin a fix in place) Palpation: soft, no guarding and nontender Auscultation: normal bowel sounds Objective Last Vital Signs Temp 35.8 C L 06/28/21 07:41 Pulse 71 06/28/21 07:41 Resp 18 06/28/21 07:41 BP 112/66 06/28/21 07:41 Pulse Ox 99 06/28/21 07:41 Laboratory Results - last 24 hr 06/27/21 06/27/21 06/27/21 15:52 16:07 16:07 WBC 21.03 H RBC 4.99 Hgb 14.6 Hct 41.0 MCV 82.2 MCH 29.3 MCHC 35.6 RDW 12.3 Plt Count 213 MPV 9.5 Immature Gran % 0.6 Neutrophils % 91.2 Lymphocytes % 2.1 Monocytes % 5.9 Eosinophils % 0.0 Basophils % 0.2 Nucleated RBC % 0 Absolute Neutrophils 19.18 H Absolute Lymphocytes 0.44 L Absolute Monocytes 1.24 H Absolute Eosinophils 0.00 Absolute Basophils 0.04 Sodium 136 Potassium 3.3 L Chloride 99 Carbon Dioxide 26.6 Anion Gap 10.4 BUN 12 Creatinine 1.1 Estimated GFR/1.73 m2 >= 60.00 Glucose 131 H Calcium 8.9 Total Bilirubin 1.3 H AST 16 ALT 26 Alkaline Phosphatase 90 Total Protein 7.8 Albumin 4.3 Lipase Urine Color Yellow Urine Clarity Clear Urine pH 6.0 Ur Specific [place] >= 1.030 H Urine Protein Negative Urine Ketones Negative Urine Blood Negative Urine Nitrite Negative Urine Bilirubin Negative Urine Urobilinogen 0.2 Ur Leukocyte Esterase Negative Urine Glucose Negative COVID-19 Source SARS-CoV-2 (PCR) 06/27/21 06/27/21 06/28/21 16:07 17:10 06:21 WBC 18.92 H RBC 4.47 Hgb 13.4 L Hct 39.0 L MCV 87.2 D MCH 30.0 MCHC 34.4 RDW 12.5 Plt Count 205 MPV 9.5 Immature Gran % 0.8 Neutrophils % 91.9 Lymphocytes % 4.2 Monocytes % 2.9 Eosinophils % 0.0 Basophils % 0.2 Nucleated RBC % 0 Absolute Neutrophils 17.39 H Absolute Lymphocytes 0.79 L Absolute Monocytes 0.55 Absolute Eosinophils 0.00 Absolute Basophils 0.04 Sodium Potassium Chloride Carbon Dioxide Anion Gap BUN Creatinine Estimated GFR/1.73 m2 Glucose Calcium Total Bilirubin AST ALT Alkaline Phosphatase Total Protein Albumin Lipase 79 Urine Color Urine Clarity Urine pH Ur Specific [place] Urine Protein Urine Ketones Urine Blood Urine Nitrite Urine Bilirubin Urine Urobilinogen Ur Leukocyte Esterase Urine Glucose COVID-19 Source Nasal/Nares SARS-CoV-2 (PCR) Negative PAWSS Have you Been Recently Intoxicated or Drunk Within the Last 30 days?: No Have you Ever Experienced Previous Episodes of Alcohol Withdrawal?: No Have you ever Experienced Withdrawal Seizures?: No Have you ever Experienced Delirium Tremens(DT)s?: No Have you ever undergone Alcohol Rehabilitation Treatment (i.e, inpt ot outpatient treatment programs)?: No Have you ever Experienced Blackouts?: No Have you ever Combined Alcohol with other Downers within the last 90 days?: No Have you ever Combined Alcohol with any other Substance of Abuse during the last 90 days?: No Positive Blood Alcohol level on Presentation? [PCS.BAL]: No Evidence of Increased Autonomic Activity (i.e. HR>120, tremor, sweating, agitation, nausea)?: No Result: 0
[2021-06-28] MEDS: Normal Saline Flush 10 ML SYR IVP ×2 (08:48→13:30)
--- NOTE | 2021-06-28 12:32 | W.PM.DS.N ---
Date of service: 06/28/21 Time of Service: 12:32 DS: Diagnosis Discharge Diagnosis (1) Acute appendicitis: Status: Acute Discharge Plan Disposition Patient Disposition: HOME Condition: Stable Discharge Details Reason For Visit: Appendicitis Admit Date/Time: 06/27/21 20:22 Admit Provider: Rhonda Palacios Attending Provider: Rhonda Palacios Primary Care Provider: Unknown,Unknown Hospital Course Hospital Course: Pt came to the ER on 06/27 with signs and symptoms compatible with acute appendicitis. He has also had a confirmatory CT scan. He underwent uneventful laparoscopic appendectomy. Please see his operative report for details of the surgical intervention. He was admitted to the medical surgical floor for pain management, hydration, and close nursing care. Postoperatively he has done well he has no UTI, DVT, wound infection, decubitus ulcer or pneumonia. He is being discharged home today. Please see DC instructions and orders. Patient is discharged in stable and satisfactory condition, and understands all his Home Meds and New Rx's Prescriptions: New tramadol [Ultram] 50 mg tablet 50 mg PO Q6H PRNQty: 10 RF: 0 Discharge Instructions Additional Instructions: Keep an ice bag on the incision. 20 minutes on and 20 minutes off. Ice keeps the swelling down and swelling causes pain. Make sure you wrap the ice pack in a towel and don't apply directly to the skin. -No driving x1 72hrs or of you are taking narcotic medications. -Follow-up with Dr. Palacios:07/10 at 9:30am [facility] -Regular diet/No restrictions -no straining to move bowels -Narcotic pain meds are very constipating: if you do not move your bowels daily take a dose of OTC milk of magnesia -It is ok to shower. No bathe, soaking, swimming or hot tubs for 2 wks. -Keep wound clean and dry. Wash incision with soap and water daily. Pat dry, don't rub. You may find that your appetite is smaller. Eat 3-6 small meals throughout the day. It is important to drink lots of water after surgery, 6-10 glasses a day. -We do want you up walking, at least 5-6 times per day. This is very important to prevent pneumonia and blood clots. You can climb stairs, take them slowly. -No lifting over 5 pounds for 2 wks. This is very important to avoid developing a hernia in your incision. -You may find that you are very tired after surgery- this is normal. -off of work until your clinic f/u appt. We will finalize RTW at that time and complete any requisite paperwork. Wound Care Instruction Pain Control ? MEDICATIONS: Alternate Tylenol 1000mg by mouth every 6 hours and Ibuprofen 600mg every 6 hours. Make sure you take ibuprofen with food and not on an empty stomach. Take the Tylenol and ibuprofen continuously for the first 72hrs- not just when you have pain. Use the tramadol for breakthrough pain. Use ICE! Twenty minutes on, and then off, continuously for the first 72hours. If you are taking narcotic pain medication, follow the instructions on the label and do not drive. Pain medications can make you very constipated. Make sure you are moving your bowels daily. If not, take Miralax, milk of magnesia or magnesium citrate. Anesthesia makes you very constipated. Take a dose of milk of magnesia the morning after surgery. ?Caring for Your Incision Home care ? Always wash your hands before touching your incision. ? Keep the incision clean, dry, and out of water, keep the incision out of water. ? Do not to pick at the scabs. Scabs help protect the wound. ? You can take a shower in 24 hours and wash the incision with soap and water. Pat dry/don?t scrub. It?s OK to wash around the incision. But don?t spray water directly on it. ? Pat stitches dry if they get wet. Don't rub. ? Check the incision site daily for pain, redness, drainage, swelling, or separation of the incision edges. ? Make sure any clothing that touches the incision is loose-fitting. This will prevent rubbing. If the incision is on the head, keep your child from wearing caps or other head coverings. These may rub against the incision. As your incision heals, the skin may appear pink or red. It may also feel slightly bumpy or raised. This is called a healing ridge. Over time, the color should fade and the raised skin will become less noticeable. When to seek medical care Call your healthcare provider right away if you have any of these: ? More pain, redness, swelling, bleeding, or foul-smelling discharge around the incision area ? Fever of 101?F (38.3?C) or higher, or as directed by your child's healthcare provider ? Shaking chills ? Vomiting or nausea that doesn?t go away ? Numbness, coldness, or tingling around the incision area, or changes in skin color ? Opening of the sutures or wound -Stitches or carolann that come apart or fall out or surgical tape falls off before 7 days, or as directed by your healthcare provider [facility]: [phone] Stand Alone Forms: Nursing Discharge Form Activity:: see above Equipment/Supplies:: No Equipment Needed Diet:: Normal Diet DS: Summary Time Spent with Patient providing and/or coordinating discharge services: Less than 30 minutes Status at Discharge Functional status at discharge: independent ambulation Overall status at discharge: patient is progressing back to baseline Mental Status: mental status grossly normal Speech and Movement: speech and movement normal Mood: congruent mood Affect: normal affect Exam Psych Mental Status: mental status grossly normal Speech and Movement: speech and movement normal Mood: congruent mood Affect: normal affect DS: Data Vitals/I&O Vitals and I&O: Vital Signs Temperature 35.8 C L 06/28/21 07:41 Temperature Source Tympanic 06/28/21 07:41 Pulse 71 06/28/21 07:41 Pulse Rhythm Regular 06/28/21 02:03 Respiratory Rate 18 06/28/21 07:41 Respiratory Effort Non-Labored 06/28/21 02:03 Respiratory Depth Normal 06/28/21 02:03 Respiratory Pattern Normal 06/28/21 02:03 Blood Pressure 112/66 06/28/21 07:41 Blood Pressure Position Sitting 06/27/21 15:43 Pulse Oximetry 99 06/28/21 07:41 Oxygen Delivery Method Room Air 06/28/21 07:41 Oxygen Flow Rate 0 06/28/21 07:41 Pain Level 1 06/28/21 08:45 Intake & Output 06/27/21 06/28/21 06/28/21 23:59 11:59 23:59 Intake Total 1650 / 1650 1066.667 / 1066.667 Output Total 1700 / 1700 1700 / 1700 Balance -50 / -50 -633.333 / -633.333 Weight 65.317 kg Intake: IV 1650 / 1650 1066.667 / 1066.667 Output: Urine 1700 / 1700 1700 / 1700 Other: Urine Color Light Amy Yellow Urine Appearance Clear Clear Urine Odor Normal Normal Emesis Description None Voiding Methods Urinal Urinal Data Completed and Pending Labs on day of discharge: Labs from last 24 hours 06/28/21 06/27/21 06/27/21 06:21 17:10 16:07 WBC 18.92 H RBC 4.47 Hgb 13.4 L Hct 39.0 L MCV 87.2 D MCH 30.0 MCHC 34.4 RDW 12.5 Plt Count 205 MPV 9.5 Immature Gran % 0.8 Neutrophils % 91.9 Lymphocytes % 4.2 Monocytes % 2.9 Eosinophils % 0.0 Basophils % 0.2 Nucleated RBC % 0 Absolute Neutrophils 17.39 H Absolute Lymphocytes 0.79 L Absolute Monocytes 0.55 Absolute Eosinophils 0.00 Absolute Basophils 0.04 Sodium Potassium Chloride Carbon Dioxide Anion Gap BUN Creatinine Estimated GFR/1.73 m2 Glucose Calcium Total Bilirubin AST ALT Alkaline Phosphatase Total Protein Albumin Lipase 79 Urine Color Urine Clarity Urine pH Ur Specific [place] Urine Protein Urine Ketones Urine Blood Urine Nitrite Urine Bilirubin Urine Urobilinogen Ur Leukocyte Esterase Urine Glucose COVID-19 Source Nasal/Nares SARS-CoV-2 (PCR) Negative 06/27/21 06/27/21 06/27/21 16:07 16:07 15:52 WBC 21.03 H RBC 4.99 Hgb 14.6 Hct 41.0 MCV 82.2 MCH 29.3 MCHC 35.6 RDW 12.3 Plt Count 213 MPV 9.5 Immature Gran % 0.6 Neutrophils % 91.2 Lymphocytes % 2.1 Monocytes % 5.9 Eosinophils % 0.0 Basophils % 0.2 Nucleated RBC % 0 Absolute Neutrophils 19.18 H Absolute Lymphocytes 0.44 L Absolute Monocytes 1.24 H Absolute Eosinophils 0.00 Absolute Basophils 0.04 Sodium 136 Potassium 3.3 L Chloride 99 Carbon Dioxide 26.6 Anion Gap 10.4 BUN 12 Creatinine 1.1 Estimated GFR/1.73 m2 >= 60.00 Glucose 131 H Calcium 8.9 Total Bilirubin 1.3 H AST 16 ALT 26 Alkaline Phosphatase 90 Total Protein 7.8 Albumin 4.3 Lipase Urine Color Yellow Urine Clarity Clear Urine pH 6.0 Ur Specific [place] >= 1.030 H Urine Protein Negative Urine Ketones Negative Urine Blood Negative Urine Nitrite Negative Urine Bilirubin Negative Urine Urobilinogen 0.2 Ur Leukocyte Esterase Negative Urine Glucose Negative COVID-19 Source SARS-CoV-2 (PCR) [facility] Social History Smoking/Tobacco Use Status: Never Smoking risk assessment performed?: Yes Alcohol Intake: current Alcohol Intake frequency: 0-2 drinks per day Alcohol type: beer, wine and hard liquor Drug use: Occasionally Substance use type: marijuana Do you feel safe at home: Yes Do you feel safe in your relationship?: Yes
--- NOTE | 2021-06-28 12:59 | W.PM.DSUDISC ---
Discharge Plan Disposition Patient Disposition: HOME Condition: Stable Discharge Details Reason For Visit: Appendicitis Admit Date/Time: 06/27/21 20:22 Admit Provider: Rhonda Palacios Attending Provider: Rhonda Palacios Primary Care Provider: Unknown,Unknown Hospital Course Hospital Course: Pt came to the ER on 06/27 with signs and symptoms compatible with acute appendicitis. He has also had a confirmatory CT scan. He underwent uneventful laparoscopic appendectomy. Please see his operative report for details of the surgical intervention. He was admitted to the medical surgical floor for pain management, hydration, and close nursing care. Postoperatively he has done well he has no UTI, DVT, wound infection, decubitus ulcer or pneumonia. He is being discharged home today. Please see DC instructions and orders. Patient is discharged in stable and satisfactory condition, and understands all his Home Meds and New Rx's Prescriptions: New tramadol [Ultram] 50 mg tablet 50 mg PO Q6H PRNQty: 10 RF: 0 amoxicillin-pot clavulanate [Augmentin] 875-125 mg tablet 1 tab PO BID 3 Days Qty: 6 RF: 0 Bio-K plus 50 billion cell capsule,delayed release(DR/EC) 1 cap PO DAILY Qty: 30 RF: 0 Discharge Instructions Additional Instructions: Keep an ice bag on the incision. 20 minutes on and 20 minutes off. Ice keeps the swelling down and swelling causes pain. Make sure you wrap the ice pack in a towel and don't apply directly to the skin. -No driving x1 72hrs or of you are taking narcotic medications. -Follow-up with Dr. Palacios:07/10 at 9:30am [facility] -Regular diet/No restrictions -no straining to move bowels -Narcotic pain meds are very constipating: if you do not move your bowels daily take a dose of OTC milk of magnesia -It is ok to shower. No bathe, soaking, swimming or hot tubs for 2 wks. -Keep wound clean and dry. Wash incision with soap and water daily. Pat dry, don't rub. You may find that your appetite is smaller. Eat 3-6 small meals throughout the day. It is important to drink lots of water after surgery, 6-10 glasses a day. -Finish all antibiotics. Probiotic for 30days. -We do want you up walking, at least 5-6 times per day. This is very important to prevent pneumonia and blood clots. You can climb stairs, take them slowly. -No lifting over 5 pounds for 2 wks. This is very important to avoid developing a hernia in your incision. -You may find that you are very tired after surgery- this is normal. -off of work until your clinic f/u appt. We will finalize RTW at that time, and complete any requisite paperwork. Wound Care Instruction Pain Control ? MEDICATIONS: Alternate Tylenol 1000mg by mouth every 6 hours and Ibuprofen 600mg every 6 hours. Make sure you take ibuprofen with food and not on an empty stomach. Take the Tylenol and ibuprofen continuously for the first 72hrs- not just when you have pain. Use the tramadol for breakthrough pain. Use ICE! Twenty minutes on, and then off, continuously for the first 72hours. If you are taking narcotic pain medication, follow the instructions on the label and do not drive. Pain medications can make you very constipated. Make sure you are moving your bowels daily. If not, take Miralax, milk of magnesia or magnesium citrate. Anesthesia makes you very constipated. Take a dose of milk of magnesia the morning after surgery. ?Caring for Your Incision Home care ? Always wash your hands before touching your incision. ? Keep the incision clean, dry, and out of water, keep the incision out of water. ? Do not to pick at the scabs. Scabs help protect the wound. ? You can take a shower in 24 hours and wash the incision with soap and water. Pat dry/don?t scrub. It?s OK to wash around the incision. But don?t spray water directly on it. ? Pat stitches dry if they get wet. Don't rub. ? Check the incision site daily for pain, redness, drainage, swelling, or separation of the incision edges. ? Make sure any clothing that touches the incision is loose-fitting. This will prevent rubbing. If the incision is on the head, keep your child from wearing caps or other head coverings. These may rub against the incision. As your incision heals, the skin may appear pink or red. It may also feel slightly bumpy or raised. This is called a healing ridge. Over time, the color should fade and the raised skin will become less noticeable. When to seek medical care Call your healthcare provider right away if you have any of these: ? More pain, redness, swelling, bleeding, or foul-smelling discharge around the incision area ? Fever of 101?F (38.3?C) or higher, or as directed by your child's healthcare provider ? Shaking chills ? Vomiting or nausea that doesn?t go away ? Numbness, coldness, or tingling around the incision area, or changes in skin color ? Opening of the sutures or wound -Stitches or carolann that come apart or fall out or surgical tape falls off before 7 days, or as directed by your healthcare provider [facility]: [phone] Stand Alone Forms: Nursing Discharge Form Activity:: see above Equipment/Supplies:: No Equipment Needed Diet:: Normal Diet DS: Diagnosis Discharge Diagnosis (1) Acute appendicitis: Status: Acute
--- NOTE | 2021-06-28 13:03 | PGE_ITS ---
Date of Service Date of service: 06/28/21 Time of Service: 13:03 Assessment and Plan Assessment and plan (1) Acute appendicitis: Status: Acute Assessment and plan: POD #1 s/p lap appy- suppurative appendicitis d/c home later today after abx. 5days abx to prevent abscess f/u 06/30 see d/c order Subjective Subjective Interval history since last seen: Pt is doing well. no headaches. No CP or SOB. no productive cough. no dysuria. no leg pain or swelling. He has no pain other than getting up from sitting to standing. He is urinating without any problems. He is tolerating soft diet. He is passing gas. No fever or chills. Exam Const General: cooperative, healthy appearing, comfortable, no acute distress, well developed and well groomed Nutritional Appearance: average body habitus and well nourished Orientation: alert, awake and oriented x3 HENMT Head: normal to inspection, normocephalic and atraumatic Ears: hearing grossly normal bilaterally and external ears normal General nose exam: external nose normal Face and sinus: normal facial exam and sinuses nontender Mouth: oral mucosae normal, lip normal, tongue normal and moist mucous membranes Teeth and gingiva: dentition normal Eyes General: appearance normal, both eyes and all related structures Conjunctivae: conjunctivae normal Sclera: sclerae normal Pupils: PERRL Neck Neck: normal visual inspection and full ROM Chest Chest: normal inspection of the chest Resp Effort & Inspection: normal respiratory effort, able to speak in complete sentences, no cough, no nasal flaring, not tachypneic and no use of accessory muscles Auscultation: clear to auscultation bilaterally, no rales, no rhonchi and no wh eezes Cardio Jugular venous pressure: no JVD Rate: regular rate Rhythm: regular rhythm GI Inspection: normal to inspection, no edema and non-distended Palpation: soft, no masses, nontender and No ascites Auscultation: normal bowel sounds Other: Incisions are clean dry and intact. There is no redness drainage swelling or swelling. He has good bowel sounds. There is minimal tenderness. Skin General skin exam: no rashes or lesions noted Trauma: no lacerations or abrasions Neuro General: patient alert, patient oriented x3, oriented, gait normal, moves all extremities, no focal motor deficits and CN's II-XI intact bilaterally Cognition: normal cognition Speech: speech normal Gait: normal gait Motor: muscle tone normal throughout Extrem General: normal to inspection, full ROM and no clubbing, cyanosis or edema Psych Appearance: grossly normal and well kempt Mental Status: mental status grossly normal Speech and Movement: speech and movement normal Affect: normal affect Objective Last Vital Signs Temp 35.8 C L 06/28/21 07:41 Pulse 71 06/28/21 07:41 Resp 18 06/28/21 07:41 BP 112/66 06/28/21 07:41 Pulse Ox 99 06/28/21 07:41 Laboratory Results - last 24 hr 06/27/21 06/27/21 06/27/21 15:52 16:07 16:07 WBC 21.03 H RBC 4.99 Hgb 14.6 Hct 41.0 MCV 82.2 MCH 29.3 MCHC 35.6 RDW 12.3 Plt Count 213 MPV 9.5 Immature Gran % 0.6 Neutrophils % 91.2 Lymphocytes % 2.1 Monocytes % 5.9 Eosinophils % 0.0 Basophils % 0.2 Nucleated RBC % 0 Absolute Neutrophils 19.18 H Absolute Lymphocytes 0.44 L Absolute Monocytes 1.24 H Absolute Eosinophils 0.00 Absolute Basophils 0.04 Sodium 136 Potassium 3.3 L Chloride 99 Carbon Dioxide 26.6 Anion Gap 10.4 BUN 12 Creatinine 1.1 Estimated GFR/1.73 m2 >= 60.00 Glucose 131 H Calcium 8.9 Total Bilirubin 1.3 H AST 16 ALT 26 Alkaline Phosphatase 90 Total Protein 7.8 Albumin 4.3 Lipase Urine Color Yellow Urine Clarity Clear Urine pH 6.0 Ur Specific [place] >= 1.030 H Urine Protein Negative Urine Ketones Negative Urine Blood Negative Urine Nitrite Negative Urine Bilirubin Negative Urine Urobilinogen 0.2 Ur Leukocyte Esterase Negative Urine Glucose Negative COVID-19 Source SARS-CoV-2 (PCR) 06/27/21 06/27/21 06/28/21 16:07 17:10 06:21 WBC 18.92 H RBC 4.47 Hgb 13.4 L Hct 39.0 L MCV 87.2 D MCH 30.0 MCHC 34.4 RDW 12.5 Plt Count 205 MPV 9.5 Immature Gran % 0.8 Neutrophils % 91.9 Lymphocytes % 4.2 Monocytes % 2.9 Eosinophils % 0.0 Basophils % 0.2 Nucleated RBC % 0 Absolute Neutrophils 17.39 H Absolute Lymphocytes 0.79 L Absolute Monocytes 0.55 Absolute Eosinophils 0.00 Absolute Basophils 0.04 Sodium Potassium Chloride Carbon Dioxide Anion Gap BUN Creatinine Estimated GFR/1.73 m2 Glucose Calcium Total Bilirubin AST ALT Alkaline Phosphatase Total Protein Albumin Lipase 79 Urine Color Urine Clarity Urine pH Ur Specific [place] Urine Protein Urine Ketones Urine Blood Urine Nitrite Urine Bilirubin Urine Urobilinogen Ur Leukocyte Esterase Urine Glucose COVID-19 Source Nasal/Nares SARS-CoV-2 (PCR) Negative PAWSS Have you Been Recently Intoxicated or Drunk Within the Last 30 days?: No Have you Ever Experienced Previous Episodes of Alcohol Withdrawal?: No Have you ever Experienced Withdrawal Seizures?: No Have you ever Experienced Delirium Tremens(DT)s?: No Have you ever undergone Alcohol Rehabilitation Treatment (i.e, inpt ot outpatient treatment programs)?: No Have you ever Experienced Blackouts?: No Have you ever Combined Alcohol with other Downers within the last 90 days?: No Have you ever Combined Alcohol with any other Substance of Abuse during the last 90 days?: No Positive Blood Alcohol level on Presentation? [PCS.BAL]: No Evidence of Increased Autonomic Activity (i.e. HR>120, tremor, sweating, agitation, nausea)?: No Result: 0
[2021-06-28] MEDS: Milk of Magnesia 30 ML CUP PO (13:30)
[2021-06-28 15:27] VITALS: BP 120/71; PULSE 63; RESP 18; TEMP 36.7; O2SAT 100
== END 2021-06-28 18:05 | disposition home or self-care (01) | DRG 343 ==
LOC: ER 18:58 → MS 21:25
PROVIDERS: Physician Assistant; Admitting Provider Surgery; Emergency Provider Registered Nurse Emergency; Visit Provider Surgery
PROC: 0DTJ4ZZ Resection of Appendix, Percutaneous Endoscopic Approach (ICD-10-PCS; CPT 44970; principal; 2021-06-27 19:00)
DX: K35.80 Unspecified acute appendicitis (principal)
CPT/HCPCS: 44970; 36415; 80053; 83690; 87635; 96361; 96365; 96367; 96375; 99285; J1650; 74177; 81003; 85025; 88304; 99284; J0131; J1100; J1885; J2001; J2405; J2543; J2704; J3490

== ENCOUNTER 2024-01-20 10:20 | Emergency (ER) | payer BC, SELFPAY ==
[2024-01-20 10:32] VITALS: BP 153/80; PULSE 72; RESP 18; TEMP 37; O2SAT 98
--- NOTE | 2024-01-20 10:43 | DI.RAD_ITS ---
Exam(s) XR HAND RT COMPLETE EXAM: XR HAND RT COMPLETE CLINICAL HISTORY: R index finger lac, r/o FB or tuft fx. TECHNIQUE: 2D digital imaging was performed. Three views. COMPARISON: No exams were available for comparison FINDINGS: BONES: No acute fracture is present. No bony destructive lesion is seen. JOINTS: No dislocation present. SOFT TISSUE: Normal. No foreign body visible. IMPRESSION: Unremarkable radiographs of the right hand. DATA REPOSITORY: RADIATION DOSE DELIVERED:
--- NOTE | 2024-01-20 10:44 | ED.GENADUL_ITS ---
Discharge Plan Disposition Patient Disposition: Home Discharge Details Clinical Impression: Laceration of finger Primary Care Provider: Salvatore Chavis ED Provider: Ольга Espitia Home Meds and New Rx's Prescriptions: No Action No Known Home Meds Discharge Instructions Instructions: Finger Laceration (ED) Additional Instructions: Please keep your finger clean and dry. Wash daily with antibacterial soap and water. Please do not soak or pull at the glue. It will come off on its own. May cover with a bandage. Your tetanus was updated today. Keeping out for signs of infection such as redness, swelling, pus draining, foul odor, increasing pain. If you notice any of these, please seek care immediately as it may indicate need for antibiotics. HPI General Date/Time Provider Initiated Documentation: 01/20/24 10:36 . HPI Narrative: Heath is a 33-year-old male who presents to the emergency department today for evaluation of right index finger laceration. He reports that he was using a steel box toe inserter while doing a home project when he slipped and cut his tip of his finger. Bleeding is minimal. He is able to fully bend and extend the finger, denies any pain. Says that the steel box toe inserter was intact after the incident. He is left-handed. Unsure of his last tetanus. No other injuries reported. Related Data Home Medications Medication Instructions Recorded Confirmed Unknown [No Known Home Meds] 01/20/24 01/20/24 Allergies Allergy/AdvReac Type Severity Reaction Status Date / Time No Known Allergies Allergy Unverified 07/10/21 09:35 General Stated Complaint: Laceration DARY: 4 Review of Systems Narrative: see HPI Exam Const General: cooperative, healthy appearing, comfortable, no acute distress, well developed and well groomed Skin Trauma: laceration right 2nd finger linear (1 cm laceration around distal aspect of R index finger, does not cross nailbed), motor nerve function intact and sensation intact; no avulsion, not actively bleeding, no pulsatile bleeding, no foreign bodies present and not contaminated Extrem Right upper extremity: full ROM and normal capillary refill; no cyanosis, no edema and joint enlargement noted Course Vital Signs Vital signs: Vital Signs Temperature 37.0 C 01/20/24 10:32 Pulse 72 01/20/24 10:32 Respiratory Rate 18 01/20/24 10:32 Blood Pressure 153/80 H 01/20/24 10:32 Pulse Oximetry 98 01/20/24 10:32 Temperature 37.0 C 01/20/24 10:32 Temperature Source Skin 01/20/24 10:32 Pulse 72 01/20/24 10:32 Respiratory Rate 18 01/20/24 10:32 Respiratory Effort Normal 01/20/24 10:33 Blood Pressure 153/80 H 01/20/24 10:32 Blood Pressure Position Sitting 01/20/24 10:32 Pulse Oximetry 98 01/20/24 10:32 Oxygen Delivery Method Room Air 01/20/24 10:32 Oxygen Flow Rate 0 01/20/24 10:32 Procedures Laceration Laceration 1: Site: hand (R index finger) Side (If applicable): right Size (cm): 1 Description: linear Depth: simple, single layer Local Anesthetic: other anesthetic (LET) Pre-repair: wound explored, irrigated extensively and deep structures intact Skin layer closed with: other (dermabond) Medical Decision Making Heath is a 33-year-old male who presents to the emergency department today for evaluation of right index finger laceration. He reports that he was using a steel box toe inserter while doing a home project when he slipped and cut his tip of his finger. Bleeding is minimal. He is able to fully bend and extend the finger, denies any pain. Says that the steel box toe inserter was intact after the incident. He is left- handed. Unsure of his last tetanus. No other injuries reported. Physical exam remarkable for approximately 1 cm laceration extending around to the tip of the right index finger, no active bleeding. Edges are well- approximated. Full painless range of motion to finger. Brisk cap refill. No other hand injury noted. History presentation consistent with uncomplicated laceration. X-ray obtained to rule out possible foreign body or tuft fracture associated with injury; no acute abnormality noted. Wound was irrigated extensively in tap water, ChloraPrep applied for antisepsis. Wound was able to be closed with Dermabond. Patient tolerated procedure well. Tdap given in the emergency department today. Reviewed discharge instructions with patient, including wound care instructions and red flags of signs of infection indicating need for return to care. Quality:SDOH Health Related Social Needs: No Data to Display PFSH All Active Problems (Updated 01/20/24 @ 11:47 by Ольга Murillo) Laceration of finger (Acute) Acute appendicitis (Acute) Social History Smoking/Tobacco Use Status: Never Smoking risk assessment performed?: Yes Alcohol Intake: current Alcohol Intake frequency: 0-2 drinks per day Alcohol type: beer, wine and hard liquor Drug use: Occasionally Substance use type: marijuana Current gender identity: male Do you feel safe at home: Yes Do you feel safe in your relationship?: Yes
[2024-01-20] MEDS: Lidocaine/Epinephri/Tetracaine Topical Gel 3 ML TP (11:45)
== END 2024-01-20 11:51 | disposition home or self-care (01) ==
PROVIDERS: Emergency Provider Nurse Practitioner Family; PCP Nurse Practitioner Gerontology
DX: S61.210A Laceration without foreign body of right index finger without damage to nail, initial encounter (principal); Z23 Encounter for immunization; W26.0XXA Contact with knife, initial encounter; Y93.89 Activity, other specified; Y92.018 Other place in single-family (private) house as the place of occurrence of the external cause
CPT/HCPCS: 12001; 90471; 90715; 99283; 73130

== ENCOUNTER → 2024-02-26 01:54 | Outpatient (CLI) | payer BC, SELFPAY ==
--- NOTE | 2024-02-26 14:27 | DI.RAD_ITS ---
Exam(s) XR HIP RT COMPLETE AP PELVIS EXAM: XR HIP RT COMPLETE AP PELVIS CLINICAL HISTORY: PAIN RT HIP JOINT, M25.551. TECHNIQUE: 2D digital imaging was performed of the right hip. Two images were obtained. AP pelvis a nd lateral right hip views were obtained. COMPARISON: No exams were available for comparison FINDINGS: BONES: No acute fracture is present. No bony destructive lesion is seen. JOINTS: No dislocation present. The joint spaces are well maintained. SOFT TISSUE: Normal. IMPRESSION: Unremarkable radiographs of the right hip. Unremarkable radiographs of the pelvis. DATA REPOSITORY: RADIATION DOSE DELIVERED:
== END ==
PROVIDERS: PCP Nurse Practitioner Gerontology; Visit Provider Family Medicine
DX: M25.551 Pain in right hip (principal)
CPT/HCPCS: 73502

== ENCOUNTER 2025-06-09 14:03 | Emergency (ER) | payer OTHER, SELFPAY ==
[2025-06-09] VITALS (56 sets, daily range): BP systolic 100–179; BP diastolic 49–81; PULSE 66–115; RESP 10–26; TEMP 36.6; O2SAT 94–100
--- NOTE | 2025-06-09 14:00 | RT.EKG_ITS ---
APPROVED REPORT Exam: Resting ECG Reason for Exam: TIA Patient Location: E HR:83 bpm ECG Measurements Heart Rate 83 AXIS DC 136 P 51 QRSd 105 QRS 88 QT 380 T -8 QTc 447 Conclusion Sinus rhythm...normal P axis, V-rate 60- 99
--- NOTE | 2025-06-09 14:15 | DI.MRI_ITS ---
Exam(s) MR BRAIN WO EXAM: MR BRAIN WO CLINICAL HISTORY: right sided body numbness, headachs TECHNIQUE: Multiplanar multisequence MRI of the brain was performed. COMPARISON: CT CT BRAIN NECK CTA from 06/09/2025 FINDINGS: VENTRICLES AND EXTRA AXIAL SPACES: Normal in size and morphology for the patient's age. MIDLINE SHIFT: None. CEREBRAL PARENCHYMA: No focus of restricted diffusion to suggest acute infarct. No space-occupying lesion identified. HEMORRHAGE: None. BRAINSTEM/CEREBELLUM: Normal. CALVARIUM: Normal. VISUALIZED PARANASAL SINUSES/MASTOIDS:Clear. [place]: Normal flow void. [place]IT[place] GL[place]: Unremarkable. OTHER FINDINGS: None. IMPRESSION: Unremarkable MRI of the brain. DATA REPOSITORY:
--- NOTE | 2025-06-09 14:20 | W.ED.GENAD ---
Discharge Plan Disposition Specific Acute Inpt Facility: [facility] Condition: Serious Discharge Details Chief Complaint: CVA/TIA Clinical Impression: Aphasia Primary Care Provider: Salvatore Chavis ED Provider: Grayson Salamanca Home Meds and New Rx's Prescriptions: No Action No Known Home Meds HPI General Mode of arrival: ambulatory. Date/Time Provider Initiated Documentation: 06/09/25 14:10. Limitations to Documentation: no limitations. Information obtained by: patient. History of Present Illness 35 year old M presents to the emergency department with the chief complaint of headaches, right sided body and face numbness, described as moderate, Quality is described as aching, and is localized to the head. Patient reports no radiation. Patient started experiencing this day(s) (5) and it has been intermittent and now resolved. No relieving factors improve symptom(s), No exacerbating factors reported . Patient notes no other symptoms.; denies chest pain, fever/chills and shortness of breath. Patient did receive the following treatments prior to arrival, none Related Data Home Medications ?Medication ?Instructions ?Recorded ?Confirmed Unknown [No Known Home Meds] 11/18/24 06/09/25 Allergies Allergy/AdvReac Type Severity Reaction Status Date / Time No Known Allergies Allergy Unverified 06/09/25 14:11 General Stated Complaint: CVA/TIA DARY: 3 Review of Systems All systems reviewed & are unremarkable except as noted in HPI and below Constitutional Constitutional: Denies chills, Denies fever(s), Reports headache(s) and Denies weakness Eyes Eyes: Denies loss of vision ENT Ears, Nose, Mouth, and Throat: Reports headache(s) Cardiovascular Cardiovascular: Denies chest pain and Denies dyspnea Respiratory Respiratory: Denies dyspnea Gastrointestinal Gastrointestinal: Denies vomiting Neurologic Neurologic: Reports headache(s), Denies loss of vision, Reports paresthesias and Denies weakness Exam Const General: no acute distress Orientation: alert HENMT Head: normal to inspection Ears: external ears normal General nose exam: external nose normal Mouth: moist mucous membranes Eyes General: appearance normal, both eyes and all related structures Neck Neck: normal visual inspection Resp Effort & Inspection: normal respiratory effort and able to speak in complete sentences Cardio Rate: regular rate Skin General skin exam: no rashes or lesions noted Neuro General: patient alert and patient oriented x3 Cranial Nerves: CN's II-XI intact bilaterally Cognition: normal cognition Speech: speech normal Gait: normal gait Motor: muscle tone normal throughout Sensory Exam: no sensory deficits noted Extrem General: normal to inspection Psych Mental Status: mental status grossly normal Course Vital Signs Vital signs: Vital Signs Temperature 36.6 C 06/09/25 14:07 Pulse 93 H 06/09/25 14:07 Respiratory Rate 16 06/09/25 14:07 Blood Pressure 179/78 H 06/09/25 14:07 Pulse Oximetry 98 06/09/25 14:07 Temperature 36.6 C 06/09/25 14:07 Pulse 93 H 06/09/25 14:07 Respiratory Rate 16 06/09/25 14:07 Blood Pressure 179/78 H 06/09/25 14:07 Pulse Oximetry 98 06/09/25 14:07 Pain Level 0 06/09/25 14:07 Medical Decision Making 35-year-old male who denies any chronic medical problems, non-smoker or heavy drinker and denies drug use comes in with 5 days of intermittent headaches which causes numbness on the right side of his body but today the numbness in his right side of his face without a headache so came in for evaluation. He says he is currently asymptomatic feels well. Denies any recent stressors in his life. He is well-appearing speaking full sentences. He said the numbness started in his right leg and right arm and then moved to his right face. He had no changes in vision or speech. Denies any chest pain or difficulty breathing. No abdominal pain. He has no motor or sensation deficits currently, no drift, pedal nerves II through XII are intact, NIH is 0. Given the headaches that he has had this could be an atypical migraine, but given his lack of history of migraines concern for also TIA, will check labs and a CT CTA and see if also they can do an MRI of his brain. labs show mild hypokalemia and hypomag but doubt this is the cause for his symptoms, MRI able to do the study, he is still feeling well at 330pm MRI done and unremarkable, on repeat assessment he is now having word finding difficulties, having trouble relaying where he works and other simple information, nih of 1. 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 Will reach out to [facility] about transfer. spoke [place] [facility] [place]et[place], accepting is Dr. Montanez. Patient currently stable still with some word finding difficulty, is complaining of a mild headache which was present prior to the lytics, will trial tylenol, compazine and benadryl Differential Diagnosis Differential Diagnosis: tia, cva, ms, migraines Medical Records Medical records reviewed: Yes I reviewed the patient's medical records. Lab Data Lab results reviewed: Yes I reviewed the patient's lab results. ECG Data Attestation: I personally reviewed and interpreted this ECG (s) as follows: Prior ECG tracings: not available for review Interpretation: sinus rhythm, rate of 83 no stemi/normal PFSH All Active Problems (Updated 06/09/25 @ 17:57 by Grayson Salamanca MD) Aphasia (Acute) Acute appendicitis (Acute) Social History Smoking/Tobacco Use Status: Never Smoking risk assessment performed?: Yes Alcohol Intake: current Alcohol Intake frequency: 0-2 drinks per day Alcohol type: beer, wine and hard liquor Drug use: Occasionally Substance use type: marijuana Current gender identity: male Do you feel safe at home: Yes Do you feel safe in your relationship?: Yes
--- NOTE | 2025-06-09 14:21 | DI.CT_ITS ---
Exam(s) CT BRAIN NECK CTA EXAM: CT BRAIN NECK CTA CLINICAL HISTORY: right sided body numbness, headache. TECHNIQUE: Imaging Protocol: Axial CT angiography was performed with multi- slice acquisition and multi-planar and MIP reconstructions. CONTRAST MATERIAL: Intravenous: Omnipaque 350 Contrast volume:100 ml COMPARISON: No exams were available for comparison FINDINGS: CT Head W/O and W contrast: Ventricles and Extra axial spaces: Normal in size and morphology for the patient's age. Hemorrhage: None. Cerebral parenchyma: No evidence of acute infarct or mass. Midline shift: None. Brainstem/Cerebellum: No acute findings.. Calvarium: Normal. Visualized Paranasal sinuses/Mastoids: Clear. Soft Tissues: Unremarkable. Enhancement: Normal. Venous sinuses are patent. CTA Brain W: Internal Carotid Arteries: Right: No aneurysm, occlusion or significant stenosis. Left: No aneurysm, occlusion or significant stenosis. Middle Cerebral Arteries: Right: No aneurysm, occlusion or significant stenosis. Left: No aneurysm, occlusion or significant stenosis. Anterior Cerebral Arteries: Right: No aneurysm, occlusion or significant stenosis. Left: No aneurysm, occlusion or significant stenosis. Posterior cerebral Arteries: Right: No aneurysm, occlusion or significant stenosis. Left: No aneurysm, occlusion or significant stenosis. Vertebral Arteries: Right: No aneurysm, occlusion or significant stenosis. Left: No aneurysm, occlusion or significant stenosis. Basilar Artery: No aneurysm, occlusion or significant stenosis. CTA Neck W: Visualized aorta: Unremarkable. Visualized pulmonary arteries: Unremarkable. Subclavian arteries: Unremarkable. Common Carotid: Right: No dissection, occlusion or significant stenosis. Left: No dissection, occlusion or significant stenosis. External Carotid: Right: No dissection, occlusion or significant stenosis. Left: No dissection, occlusion or significant stenosis. Internal Carotid: Right: No dissection, occlusion or significant stenosis. Left: No dissection, occlusion or significant stenosis. Vertebral Artery: Right: No dissection, occlusion or significant stenosis. Left: No dissection, occlusion or significant stenosis. Lung Apices: No acute findings. Bones: No acute abnormality. Soft Tissues: Normal. IMPRESSION: 1. CTA brain: Normal CTA examination of the [place]. 2. Head CT: No acute abnormality. 3. CTA neck: No evidence of occlusion, significant stenosis or dissection. RADIATION DOSE DELIVERED: 2,120.58mGy.cm Total DLP DATA REPOSITORY: All CT scans at this facility are submitted to the National Radiology Data Registry (NRDR) Dose Index Registry (DIR) with the [employer] (ACR). RADIATION OPTIMIZATION: All CT scans at this facility use at least one of these dose optimization techniques: automated exposure control; mA and/or kV adjustment per patient size (includes targeted exams where dose is matched to clinical indication); or iterative reconstruction.
[2025-06-09 14:51] LABS: Abs Immature Grans 0.02 10^3/uL (0.0-0.06); HCT 41.5 % (40.0-50.0); HGB 14.8 g/dL (13.5-17.5); Immature Grans % 0.3 %; MCH 29.9 pg (27.0-33.0); MCHC 35.7 % (32.0-36.0); MCV 84 fL (80-95); MPV 9.2 fL (8.0-11.0); Platelet Count 200 10^3/uL (130-400); RBC 4.95 10^6/uL (4.36-5.78); RDW 12.9 % (11.8-14.1); RDW-SD 39.0 fL; WBC 6.79 10^3/uL (4.4-10.8)
[2025-06-09 15:03] LABS: INR 1.1 (0.9-1.1); PTT Activated 25.6 sec (20.6-30.2); Prothrombin Time 11.0 sec (9.1-11.1)
[2025-06-09] MEDS: Normal Saline - Diluent 50 ML VIAL IJ (15:03)
[2025-06-09] MEDS: Omnipaque 350 MG/ML 100 ML BTL IJ (15:04)
[2025-06-09] MEDS: Normal Saline Flush 10 ML SYR IVP (15:04)
[2025-06-09 15:18] LABS: ALT 31 U/L (16-63); AST 16 U/L (15-37); Albumin 4.6 g/dL (3.4-5.0); Alkaline Phosphatase 88 U/L (46-116); Anion Gap 11.3 mmol/L (3-11); BUN 12 mg/dL (7-18); Bilirubin, Total 0.9 mg/dL (0.2-1.0); CO2 29.7 mmol/L (21.0-32.0); Calcium 9.2 mg/dL (8.5-10.1); Chloride 98 mmol/L (98-107); Estimated GFR 100.03 (mL/min/1.73m2); Glucose 110 mg/dL (74-106); Magnesium 1.7 mg/dL (1.8-2.4); Potassium 3.0 mmol/L (3.5-5.1); Sodium 139 mmol/L (136-145); Total Protein 8.2 g/dL (6.4-8.2)
[2025-06-09] MEDS: Tenecteplase 50 MG KIT 16 MG IVP (17:46)
[2025-06-09] MEDS: ACETAMINOPHEN 1,000 MG/100 ML BAG 400 MG IVPB (18:23)
[2025-06-09] MEDS: diphenhydrAMINE 50 MG/ML VIAL 12.5 MG IVP (19:13)
[2025-06-09] MEDS: Prochlorperazine 10 MG/2 ML VIAL IVP (19:13)
== END 2025-06-09 20:54 ==
LOC: ER 16:53
PROVIDERS: Emergency Provider Emergency Medicine; PCP Nurse Practitioner Gerontology
DX: R47.01 Aphasia (principal); R51.9 Headache, unspecified
CPT/HCPCS: 36415; 70496; 70498; 80053; 93005; 96365; 96375; 99285; 70551; 83735; 85025; 85610; 85730; 93010; 99284; J0131; J0780; J1200; J3101; J3490

== ENCOUNTER 2025-07-10 02:02 | Outpatient (CLI) | payer OTHER, SELFPAY ==
[2025-07-10 09:29] LABS: Abs Immature Grans 0.07 10^3/uL (0.0-0.06); HCT 44.3 % (40.0-50.0); HGB 15.5 g/dL (13.5-17.5); Immature Grans % 1.0 %; MCH 30.6 pg (27.0-33.0); MCHC 35.0 % (32.0-36.0); MCV 88 fL (80-95); MPV 9.0 fL (8.0-11.0); Platelet Count 143 10^3/uL (130-400); RBC 5.06 10^6/uL (4.36-5.78); RDW 12.6 % (11.8-14.1); RDW-SD 39.8 fL; WBC 6.90 10^3/uL (4.4-10.8)
[2025-07-10 10:54] LABS: ALT 431 U/L (10-49); AST 283 U/L (<34); Albumin 4.4 g/dL (3.4-5.0); Alkaline Phosphatase 86 U/L (46-116); Bilirubin, Direct 0.2 mg/dL (<=0.3); Bilirubin, Total 0.60 mg/dL (0.2-1.2); Total Protein 7.3 g/dL (5.7-8.2)
== END 2025-07-10 02:03 | disposition home or self-care (01) ==
PROVIDERS: PCP Nurse Practitioner Gerontology
DX: R56.9 Unspecified convulsions (principal)
CPT/HCPCS: 36415; 80076; 80164; 85025

== ENCOUNTER → 2025-07-19 01:44 | Outpatient (CLI) | payer OTHER, SELFPAY ==
--- NOTE | 2025-07-19 07:30 | DI.US_ITS ---
APPROVED REPORT EXAM: Comprehensive 2D, Doppler, and color-flow Echocardiogram Patient Location: Out-Patient Wheel Blocker: Nivia Cheng RDCS (AE) Indications: Seizure, Convuslsions Other Information Study Quality: Good Conclusion Normal left ventricular wall thickness and chamber size. Ejection fraction is 60%. Wall motion is normal. Normal right ventricular size and function Both atria are normal in size There is no structural or hemodynamically significant valvular disease Normal estimated right ventricular systolic pressure 28 mmHg Wall motion Left Ventricle The left ventricle is normal size. The left ventricular systolic function is normal. The left ventricular ejection fraction is within the normal range. There is normal left ventricular wall thickness. There is normal LV segmental wall motion. There is no ventricular septal defect visualized. LVEF is 60%. Right Ventricle The right ventricle is normal size. The right ventricular systolic function is normal. Atria The left atrium size is normal. The right atrium size is normal. The interatrial septum is intact with no evidence for an atrial septal defect. Aortic Valve The aortic valve is normal in structure. Aortic valve is trileaflet. There is no aortic valvular stenosis. No aortic regurgitation is present. Mitral Valve The mitral valve is normal in structure. No evidence of mitral valve stenosis. Trace mitral regurgitation. Tricuspid Valve The tricuspid valve is normal in structure. There is no tricuspid valve stenosis. Mild tricuspid regurgitation. The RVSP is 28.4 mmHg. Pulmonic Valve The pulmonary valve is normal in structure. There is no pulmonic valvular stenosis. Trace pulmonic regurgitation. Great Vessels The aortic root is normal in size. The ascending aorta is normal in size. Aortic arch is normal in caliber. IVC is normal in size and collapses >50% with inspiration. Pericardium There is no pericardial effusion. 2D Dimensions IVSD d PLAX 0.70 cm M: 0.6-1.2 Ao Root d 2.65 cm M: 3.1 - 3.7 LVPW d PLAX 0.71 cm M: 0.6 - 1.2 Ao Asc Diam d 2.47 cm M: 2.6 - 3.4 LVID d PLAX 4.60 cm M: 4.2 - 5.8 LVDs 3.12 cm M: 2.5 - 4.0 LV EF Teichholz 60.1 % FS 31.96 % LV EDV (Teich) 96.5 mL LV ESV (Teich) 38.5 mL M-Mode TAPSE 2.60 cm (M/F) >1.7 Auto EF LV EDV A4C 137.7 mL LV EDV A2C 145.8 mL LV EDV BP 139.5 mL LV ESV A4C 53.9 mL LV ESV A2C 59.2 mL LV ESV BP 55.6 mL LVEF(%) A4C 60.8 % LVEF(%) A2C 59.4 % LVEF(%) BP 60.1 % LV SV A4C 83.8 ml LV SV A2C 86.6 ml LV SV BP 83.9 ml LV CO A4C 5.5 L/min LV CO A2C 5.7 L/min LV CO BP 5.6 L/min HR A4C 65.46 BPM HR A2C 66.03 BPM LV EDV Index (BP) LA Volume LA Length A4C 4.5 cm LA Length A2C 3.5 cm LA Area A4C s 13.76 cm2 LA Area A2C s 11.82 cm2 LA Vol A4C A-L 35.69 mL LA Vol A2C A-L 34.12 mL LA Vol Biplane A-L 39.7 mL LA Vol/BSA A4C A-L LA Vol/BSA A2C A-L LA Vol/BSA BP A-L 22.7 mL/m2 LA Vol A4C MOD 33.2 mL LA Vol A2C MOD 30.8 mL LA Vol BP MOD 36.0 mL RA Volume RA Area A4C 12.4 cm2 RA ESV A4C (A-L) 28.2mL RA Vol/BSA A4C A-L RA Length A4C 4.6 cm RA ESV A4C (MOD) 27.0mL LV Diastology MV E' medial 0.144 (>0.07 m/s) MV E Vmax 0.75 (0.4-1.3 m/s) MV E/E' MED 5.25 (<14) MV A Vmax 0.55 (0.4-1.3 m/s) MV E' lateral 0.170 (>0.1 m/s) E/A Ratio 1.4 MV E/E' LAT 4.44 (<14) MV E' Average 0.157 m/s MV E/E'(average) 4.81 Aortic Valve AoV Vmax 1.07 m/s LVOT Vmax 1.11 m/s AoV Peak Grad 4.6 mmHg LVOT Peak Grad 4.9 mmHg AoV Area (Vmax) 3.39 cm2 LVOT VTI 0.225 m AoV VTI 0.237 m LVOT Mean Grad 2.6 mmHg AoV Mean Etienne. 0.77 m/s LVOT SV 73.62 mL AoV Mean Grad 2.7 mmHg LVOT Diam s 2.00 cm AoV Area (VTI) 3.10 cm2 AV Regurg Peak Gr. 4.61 mmHg Velocity Ratio 1.04 Mitral Valve MV DT 214 (160-240 msec) MV Vmax TIPS 0.74 m/s MV Mean Grad 0.8 (<2mmHg) MV VTI 0.203 m Pulmonary Valve PV Vmax 1.06 (0.5-1.5 m/s) RVOT Vmax 0.73 m/s PV Peak Grad 4.5 mmHg RVOT Peak Gr. 2.1 mmHg PV Mean Etienne 0.72 m/s RVOT VTI 0.161 m PV Mean Grad 2.4 mmHg RVOT Mean Gr. 1.2 mmHg Tricuspid Valve RA Pressure 3.00 mmHg TR Vmax 2.52 m/s TV S' 0.14 m/s TR Peak Grad 25.3 mmHg RVSP (TR) 28.4 mmHg
== END ==
LOC: DI 01:44
PROVIDERS: PCP Nurse Practitioner Gerontology; Visit Provider Family Medicine
DX: R56.9 Unspecified convulsions (principal)
CPT/HCPCS: 93306

== ENCOUNTER → 2025-08-07 00:15 | Outpatient (CLI) | payer OTHER, SELFPAY ==
--- NOTE | 2025-08-07 07:50 | DI.RAD_ITS ---
Exam(s) XR THORACIC SPINE COMPLETE EXAM: XR THORACIC SPINE COMPLETE CLINICAL HISTORY: PAIN IN THORACIC SPINE,SEQUENTAL AND SOMATICE DYSFUNCTION THORACIC REGION. TECHNIQUE: 2D digital imaging was performed. Three views. COMPARISON: No exams were available for comparison FINDINGS: BONES: There is no fracture or destructive lesion. The vertebral bodies and posterior elements are unremarkable. ALIGNMENT: Within normal limits. DISKS: Interverebral disc spaces are maintained. There are minimal anterior endplate osteophytes at T6-7 and T7-8. SOFT TISSUE: Visualized lungs are clear. IMPRESSION: Unremarkable radiographs of the thoracic spine. DATA REPOSITORY: RADIATION DOSE DELIVERED:
== END ==
LOC: DI 00:15
PROVIDERS: PCP Nurse Practitioner Gerontology
DX: M99.02 Segmental and somatic dysfunction of thoracic region
CPT/HCPCS: 72072

== ENCOUNTER 2025-08-08 01:36 | Outpatient (CLI) | payer OTHER, SELFPAY ==
[2025-08-08 08:00] LABS: Abs Immature Grans 0.02 10^3/uL (0.0-0.06); HCT 44.4 % (40.0-50.0); HGB 15.2 g/dL (13.5-17.5); Immature Grans % 0.3 %; MCH 30.0 pg (27.0-33.0); MCHC 34.2 % (32.0-36.0); MCV 88 fL (80-95); MPV 9.4 fL (8.0-11.0); Platelet Count 141 10^3/uL (130-400); RBC 5.07 10^6/uL (4.36-5.78); RDW 12.5 % (11.8-14.1); RDW-SD 40.0 fL; WBC 5.74 10^3/uL (4.4-10.8)
[2025-08-08 09:30] LABS: ALT 297 U/L (10-49); AST 124 U/L (<34); Albumin 4.3 g/dL (3.2-5.0); Alkaline Phosphatase 82 U/L (46-116); Anion Gap 7.6 mmol/L (3-11); BUN 19 mg/dL (9-23); Bilirubin, Total 0.9 mg/dL (0.2-1.2); CO2 29.4 mmol/L (20.0-31.0); Calcium 9.2 mg/dL (8.3-10.6); Chloride 104 mmol/L (98-107); Glucose 95 mg/dL (74-106); Potassium 4.2 mmol/L (3.5-5.1); Sodium 141 mmol/L (136-145); Total Protein 7.1 g/dL (5.7-8.2)
== END 2025-08-08 01:37 | disposition home or self-care (01) ==
PROVIDERS: PCP Nurse Practitioner Gerontology; Visit Provider Student in an Organized Health Care Education/Training Program
DX: G40.009 Localization-related (focal) (partial) idiopathic epilepsy and epileptic syndromes with seizures of localized onset, not intractable, without status epilepticus (principal)
CPT/HCPCS: 36415; 80053; 80164; 85025